=== PATIENT | female | born 1995 | race Caucasian/White ===

== ENCOUNTER → 2023-11-23 09:56 | Outpatient (REF) | payer BC, SELFPAY | LOC: RAD 09:56 | PROVIDERS: ATTENDING PHYSICIAN Obstetrics & Gynecology | DX: O02.1 Missed abortion (principal) | CPT/HCPCS: 76830; 76856 ==

== ENCOUNTER → 2024-01-21 08:49 | Outpatient (REF) | payer BC, SELFPAY | LOC: RAD 08:49 | PROVIDERS: ATTENDING PHYSICIAN Obstetrics & Gynecology; FAMILY PHYSICIAN Family Medicine | DX: N92.5 Other specified irregular menstruation (principal) | CPT/HCPCS: 76830; 76856 ==